=== PATIENT | male | born 1950 | race Caucasian/White ===

== ENCOUNTER 2017-12-24 17:25 | Emergency (ER) | payer OTHER ==
[~2017-12-24] VITALS: Ht 165.1 cm; Wt 76.7 kg
--- NOTE | ~2017-12-24 | EKG ---
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: [facility] : 1950 Requested By: Saritha Jackson Order Number: [id number] MD: Edinson Santillan Measurements Intervals [place] Rate: 85 P: 66 W[place]: 170 QRS: 61 QRSD: 117 T: 2 QT: 363 QTc: 432 Interpretive Statements Sinus rhythm Nonspecific intraventricular conduction delay Compared to ECG 04/08/2015 13:34:34 Intraventricular conduction delay now present Electronically Signed On 12-27-2017 7:57:53 CDT by Edinson Santillan [email or web address] <ELECTRONICALLY SIGNED> By: Edinson Santillan MD 12/27/17 0757 [id number] 173 Edinson Santillan MD /CARTER
[~2017-12-24 17:25] MED LIST: ANDROGEL1.25 GM; ANDROGEL75 GM TOP; ASPIR 8181 MG PO; ASPIRIN325 PO; BENADRYL25 MG PO; COLACE100 MG PO; DILAUDID 2 MG TA2 MG PO; EXFORGE 5-1601 EACH; EXFORGE 5-3201 EACH PO; GLUCOSAMINE HC500 MG; HYDROCODONE-AP1 EAC6 PO; HYDROXYZINE HCL25 M1 PO; HYDROXYZINE HCL25 M2 PO; IBUPROFEN 800800 M1 PO; IRON325 PO; K-TAB10 MEQ PO; KEFLEX500 MG PO; LASIX 20 MG TAB20 MG PO; LIDODERM 5%1 PATC1 TRANSDERM; LOPRESSOR100 M1 PO; LOPRESSOR50 PO; METOPROLOL SUC100 MG PO; MIRALAX17 G1 PO; MULTI VITAMIN1 EACH PO; MULTI-DAY VITA1 EACH PO; NAPROSYN500 M1 PO; NORVASC 5 MG TAB5 MG PO; PRILOSEC20 MG PO; SENNA PO; SENNA S TABLET1 EACH PO; SENOKOT-S1 TA1 PO; VIAGRA100 MG PO; VIAGRA25 MG
[2017-12-24 17:53] LABS: HEMATOCRIT 36.4 % (42.0-52.0); HEMOGLOBIN 12.5 gm/dL (14.0-18.0); MCH 32.4 pg (26.0-34.0); MCHC 34.4 g/dL (28.0-37.0); MCV 94.3 fL (80.0-100.0); PLATELET COUNT 247 thou/uL (150-400); RBC 3.86 mil/uL (4.50-6.00); RDW 13.4 % (10.5-14.5); WBC 7.5 thou/uL (4.0-11.0)
[2017-12-24 17:58] LABS: ANION GAP 11 mmol/L (7-16); BUN 25 mg/dL (7-18); CHLORIDE 102 mmol/L (98-107); CO2 24 mmol/L (21-32); GLUCOSE 120 mg/dL (74-106); POTASSIUM 3.7 mmol/L (3.5-5.1); SODIUM 137 mmol/L (136-145)
[2017-12-24 18:07] LABS: ALBUMIN 4.2 g/dL (3.4-5.0); SGOT 20 U/L (15-37); SGPT 16 U/L (30-65); TOTAL BILIRUBIN 0.4 mg/dL (<0.1-1.0); TOTAL PROTEIN 8.7 g/dL (6.4-8.2); TROPONIN-I < 0.04 ng/mL (<0.06)
[2017-12-24 18:27] LABS: PLATELET ESTIMATE NORMAL
[2017-12-24] MEDS ORDERED: TRAMADOL 50 MG50 MG PO (19:50)
[2017-12-24] MEDS ORDERED: PREDNISONE 20 M20 MG PO (19:50)
== END 2017-12-24 21:25 | disposition home or self-care (01) ==
LOC: ER 17:25
PROVIDERS: Nurse Practitioner Family
DX: R07.89 Other chest pain (principal); I10 Essential (primary) hypertension; Z88.5 Allergy status to narcotic agent; Z87.891 Personal history of nicotine dependence